=== PATIENT | male | born 1970 | race Caucasian/White ===

== ENCOUNTER 2018-09-27 14:16 | Observation (INO) ==
[2018-09-27] MEDS ORDERED: Sodium Chloride 0.9% 1,000 ML PRIMARY IV ONE (14:37)
[2018-09-27] MEDS ORDERED: ASPIRIN 81 MG (BABY) CHEWABLE TABLET PO ONE (14:37)
[2018-09-27 14:44] LABS: BASOPHILS # (AUTO) 0.04 10*3/UL; BASOPHILS % (AUTO) 0.6 % (0-1); EOSINOPHILS # (AUTO) 0.09 10*3/UL; EOSINOPHILS % (AUTO) 1.3 % (0-8); Hematocrit [HCT] 44.2 % (42.0-52.0); Hemoglobin [HGB] 15.6 g/dL (14.0-18.0); MEAN CORPUSCULAR HEMOGLOBIN 31.4 PG (27-31); MEAN CORPUSCULAR HGB CONC 35.3 g/dL (33-37); MEAN CORPUSCULAR VOLUME 88.9 FL (80-90); MEAN PLATELET VOLUME 11.3 FL (7.4-12.2); MONOCYTES % (AUTO) 8.4 % (5-15); NEUTROPHILS # (AUTO) 3.74 10*3/UL; RED BLOOD COUNT 4.97 10^6/uL (4.70-6.10)
[2018-09-27 14:45] LABS: PLATELET MORPHOLOGY COMMENT NORMAL MORPHOLOGY (NORM); RBC MORPHOLOGY COMMENT NORMAL MORPHOLOGY (NORM); WBC MORPHOLOGY COMMENT NORMAL MORPHOLOGY (NORM)
[2018-09-27 14:51] LABS: BLOOD UREA NITROGEN 11 mg/dL (7-22); BUN/CREATININE RATIO 12.22 (6-20); SERUM ALBUMIN 5.2 g/dL (3.5-4.8)
[2018-09-27 15:03] LABS: VENOUS PH 7.44 (7.32-7.42)
--- NOTE | 2018-09-27 15:10 | DI ---
AP CHEST X-RAY, 09/27/2018 2:37 PM : Clinical History: Chest pain. Previous Exam: None at this facility. Soft Tissues: No acute soft tissue abnormality. Bones: Normal. Heart: Normal heart. Lungs: No infiltrates. Effusion(s): None. Mediastinum: Normal mediastinum. Nodules: No pulmonary nodules. Reading: Normal chest x-ray.
[2018-09-27] MEDS ORDERED: NITROGLYCERIN 0.4 MG SL TAB (BOTTLE OF 3) SL ONE (15:49)
--- NOTE | 2018-09-27 15:52 | EKG ---
[address] [address] Measurements Intervals [place] Rate: 121 P: 32 CO: 100 QRS: 60 QRSD: 98 T: 26 QT: 349 QTc: 421 Interpretive Statements SINUS TACHYCARDIA WITH SHORT CO INTERVAL RIGHT VENTRICULAR CONDUCTION DELAY NONSPECIFIC ST & T-WAVE ABNORMALITY ABNORMAL RHYTHM ECG No previous ECG available for comparison Electronically Signed On 09-27-18 17:24:58 MST by Danilo Lawson [email or web address]
--- NOTE | 2018-09-27 16:02 | PDOC ---
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 Started having some weird as he states it feeling in his chest while at work started hyperventilating pain got worse and had his friends take him to the ER. He has a lot of stress and anxiety and most likely had a panic panic attack but he never experienced something like this and he said he usually can walk himself to a panic attack. He has no chest pain at this point is feeling much better Past Medical History Medical History: Hypertension Tobacco Use: Never Smoker In the Past 12 Months, Have Used or Abuse Any of the Following Substance: None Alcohol Use: Occasionally Medication / Allergies Home Medications: Home Medications Medication Instructions Recorded Confirmed Type Amlodipine Besylate 10 mg PO DAILY 09/27/18 09/27/18 History Fosinopril/Hydrochlorothiazide 10 - 12.5 mg PO DAILY 09/27/18 09/27/18 History [Fosinopril-Hctz 10-12.5 mg Tab] Allergies/Adverse Reactions: Allergies Allergy/AdvReac Type Severity Reaction Status Date / Time No Known Allergies Allergy Verified 09/27/18 14:27 Review of Systems - Review of Systems All Systems: Reviewed & No Additional Complaints Except as Stated - Respiratory Respiratory: DENIES: Negative System Review, Cough, Sputum, Dyspnea At Rest, Dyspnea with Exertion, Pleuritic Pain, Hemoptysis, Wheezing, Other, See HPI - Cardiovascular Cardiovascular: REPORTS: Chest Pain - Gastrointestinal Gastrointestinal / Abdominal: DENIES: Negative System Review, Nausea, Vomiting, Diarrhea, Constipation, Abdominal Pain, Bloody Stool, Poor Appetite, Heartburn, Regurgitation, Bloating, Lactose Intolerance, Melena, Bright Red Blood per Rectum, Other, See HPI Exam - Vitals Vital Signs: Vital Signs Temperature 97.4 F Temperature Source Temporal Artery Scan Pulse Rate [Bilateral Radial] 125 Pulse Rate 125 Respiratory Rate 24 Blood Pressure [Right Arm] 186/101 Pulse Ox 96 Oxygen Delivery Method Room Air Height 5 ft 9 in Weight 200 lb - General General Appearance: No Acute Distress, Cooperative - Head Head Exam: Normal Inspection, Normocephalic, Atraumatic - Eye Eye Exam: POSITIVE: Normal Appearance, PERRL, EOMI, No Scleral Icterus - Respiratory Respiratory Exam: POSITIVE: Clear to Auscultation - Bilaterally, Breathing Non Labored, Normal To Percussion, Normal to Percussion and Palpation - Cardiovascular Cardiovascular Exam: POSITIVE: RRR, No Murmur, No Clicks, No Gallops, No Rubs, PMI Non-Displaced - GI/Abdominal GI/Abdominal Exam: POSITIVE: Normal Bowel Sounds, Non Tender, Non Distended, Soft, No Masses, No Hepatomegaly, No Splenomegaly, No Organomegaly - Extremities Extremities Exam: POSITIVE: No Clubbing Present, No Edema Present, No Cyanosis Present - Neurological Neurological Exam: POSITIVE: Alert, Oriented x 3, No Facial Droop, Speech Intact / Clear - Psychiatric Psychiatric Exam: POSITIVE: Normal Affect, Anxious Results - Labs CBC and BMP: 09/27/18 14:37 09/27/18 14:10 Assessment and Plan - Patient Problems (1) Chest pain Current Visit: Yes Status: Acute Comment: rule out serial enzymes plus jonnie scan stess test Code(s): R07.9 - Chest pain, unspecified (2) HTN (hypertension) Current Visit: Yes Status: Acute Comment: guerline plus CCB will change to lisinopril 40 I discussed this with the patient Code(s): I10 - Essential (primary) hypertension (3) Anxiety Current Visit: Yes Status: Acute Comment: We'll give half a milligram of Ativan every 4 hours Code(s): F41.9 - Anxiety disorder, unspecified
[2018-09-27] MEDS ORDERED: NITROGLYCERIN 0.4 MG SL TAB (BOTTLE OF 3) SL PRN (16:20)
[2018-09-27] MEDS ORDERED: LISINOPRIL 10 MG TABLET PO SCH (16:20)
[2018-09-27] MEDS ORDERED: CALCIUM CARBONATE 500 MG (TUMS) CHEWABLE TABLET PO PRN (16:20)
[2018-09-27] MEDS ORDERED: LIDOCAINE W/ SODIUM BICARB 0.5 ML SYR SUBD PRN (16:20)
[2018-09-27] MEDS: LISINOPRIL 20 MG TABLET PO SCH (18:06)
[2018-09-27 18:07] LABS: AMPHETAMINE SCREEN NEGATIVE (NEG); CANNABINOID SCREEN,URINE NEGATIVE (NEG); COCAINE SCREEN NEGATIVE (NEG); METHADONE URINE SCREEN NEGATIVE (NEG); METHAMPHETAMINES SCREEN,URINE NEGATIVE (NEG); OPIATE SCREEN,URINE NEGATIVE (NEG); URINE SAMPLE TYPE CLEAN CATCH URINE; URINE SPECIFIC GRAVITY - MAN 1.004
[2018-09-27] MEDS: HEPARIN 5000 UNIT/1 ML SUBCUT SCH ×2 (18:08→23:56)
[2018-09-27] MEDS: LORazepam 2 MG/1 ML VIAL IVP PRN ×2 (20:30→22:34)
[2018-09-28] MEDS: LORazepam 2 MG/1 ML VIAL IVP PRN ×4 (00:53→21:31)
[2018-09-28 05:27] LABS: CHOL/HDL RATIO 6.05 RATIO (0-4.0)
--- NOTE | 2018-09-28 06:27 | PDOC ---
Chest Pain HPI - General Chief Complaint: Chest Pain Stated Complaint: CHEST PAIN Date Seen by Provider: 09/27/18 Time Seen by Provider: 14:25 Source: Patient Exam Limitations: POSITIVE: No limitations Treatment Prior to Arrival: REPORTS: None Nurse's Notes Reviewed & Considered: Yes - History of Present Illness Initial Comments: The patient is a 48-year-old male. Approximately 30 minutes [employer] he was eating a banana and he developed "chest pain" over the left anterior chest and a sensation of "my heart beating hard". He states he became short of breath and he did have some "tingling" to his hands. History of hypertension. 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 No similar symptoms previously. Body Location Affected: REPORTS: Chest Timing: REPORTS: Abrupt Duration: 1/2 hour Severity: Moderate Persistent/Worse since (date): 09/27/18 Persistent/Worse since (time): 13:55 Context: REPORTS: Rest Quality: REPORTS: Aching, Pressure Radiation: REPORTS: None Associated Symptoms: REPORTS: Shortness of Breath, Palpitations. DENIES: Nausea, Vomiting, Diaphoresis, Hurts to Breathe, Productive Cough (blood), Productive Cough (sputum), Weakness, Dizziness Modifying Factors: improves with: None Reported Similar Symptoms Previously: No Any Prior Injuries Related to Current Complaint?: No - Patient Home Medications Home Medications: Home Medications Amlodipine Besylate 10 mg PO DAILY 09/27/18 Fosinopril/Hydrochlorothiazide [Fosinopril-Hctz 10-12.5 mg Tab] 10 - 12.5 mg PO DAILY 09/27/18 - Patient Allergies Allergies/Adverse Reactions: Allergies Allergy/AdvReac Type Severity Reaction Status Date / Time No Known Allergies Allergy Verified 09/27/18 14:27 Past Medical History - heen HEENT History: Denies History Cardiovascular History: Hypertension Respiratory History: Denies History Gastrointestinal History: Denies History Genitourinary History: Denies History Endocrine History: Other (please comment) Additional Endocrine History: PT STATES THAT HE THINKS HE HAS PREDIABETES Musculoskeletal History: Denies History Neurological History: Denies History Blood Disorders: Denies History Psychiatric History: Denies History Male Reproductive History: Denies History Cancer History: Denies History In Past Year Been Physically Harmed or Verbally Threatened: No History of MDRO: No Tobacco Use: Never Smoker Type of alcohol normally used: Beer In the Past 12 Months, Have Used or Abuse Any Substance: None Previous Surgical History: Yes Type / Date of Surgery: APPENDECTOMY Anesthesia Reactions: No Malignant Hyperthermia: No Family History of Malignant Hyperthermia: No Significant Family History: Diabetes Additional Family History: Pt's father was a diabetic Past Medical History Reviewed: Reviewed - No Changes ROS - Limitations ROS Limitations: No Limitations Constitution: REPORTS: Denies Symptoms Cardiovascular: REPORTS: Chest Pain Respiratory: REPORTS: Shortness Of Breath, Other (Hyperventilating) Neurological: REPORTS: Denies Neuro Symptoms Gastrointestinal: REPORTS: Denies GI Symptoms Endocrine: REPORTS: Denies Symptoms Musculoskeletal: REPORTS: Denies MS Symptoms Genitourinary: REPORTS: Denies Symptoms Eyes: REPORTS: Denies Symptoms ENT: REPORTS: Denies Symptoms Skin: REPORTS: Denies Skin Symptoms Lympathic: REPORTS: Denies Lympathic Symptoms Immunologic: POSITIVE: Denies Symptoms Psychiatric: POSITIVE: Anxiety Chest Pain PE - General Appearance General Appearance: REPORTS: Alert, Cooperative, No Acute Distress, No Evidence of Trauma - HEENT HEENT: POSITIVE: Head Inspection Nml, Eyes Inspection Nml, Ears Inspection Nml, Nose Inspection Nml, Oral/Dental Inspect. Nml, Pharynx Inspect. Nml, PERRL, EOMI - Neck Neck: REPORTS: Normal Inspection, No Carotid Bruit - Respiratory Respiratory: REPORTS: No Respiratory Distress, Breath Sounds Normal, Chest Non- Tender - Cardiovascular Cardiovascular: REPORTS: Regular Rate and Rhythm, Heart Sounds Normal, Equal Pulses, Strong Pulses, No Murmur, No Gallop, No Friction Rub, No JVD Peripheral Pulses: Radial (R): 2+, Radial (L): 2+ - Abdomen Abdomen: Soft: (All Quadrants), Normal Bowel Sounds: (All Quadrants), Denies Tenderness: (All Quadrants), No Splenomegaly: (All Quadrants), No Hepatomegaly: (All Quadrants), No Guarding: (All Quadrants), No Rebound: (All Quadrants), No Palpable Pulse: (All Quadrants), No Palpabale Mass: (All Quadrants), No Distention: (All Quadrants), No Rigidity: (All Quadrants) - Skin Skin: REPORTS: Intact, Normal For Race, Warm, Dry, No Rash - Extremities Extremity: Non-Tender: (All Extremities), Normal ROM: (All Extremities), Normal Inspection: (All Extremities) - Neurological / Psychological Neurological: POSITIVE: Affect Apporpriate, Oriented X3, box cutter Normal As Tested, Motor Normal, Sensation Normal Images - Complete Complete: 1 - Area of described chest "heaviness and pressure " Chest Pain Progress - Results Reviewed by me Xrays/CTs/US Reviewed by me: Yes Discussed with Radiologist: Yes Radiology Findings: Chest x-ray normal Lab Results Reviewed by Me: Yes (all normal) CBC and BMP: 09/27/18 14:37 09/27/18 14:10 Lab Results:: Laboratory Results 09/27/18 09/27/18 09/27/18 14:10 14:10 14:10 WBC RBC Hgb Hct MCV MCH MCHC RDW Std Deviation RDW Coeff of Mary Plt Count MPV Immature Gran % (Auto) Neut % (Auto) Lymph % (Auto) Wetzel % (Auto) Eos % (Auto) Baso % (Auto) Immature Gran # (Auto) Neut # (Auto) Lymph # (Auto) Wetzel # (Auto) Eos # (Auto) Baso # (Auto) WBC Morphology Comment Plt Morphology Comment RBC Morph Comment D-Dimer 0.24 VBG pH VBG pCO2 VBG HCO3 VBG Base Excess Sodium 141 Potassium 3.7 L Chloride 102 Carbon Dioxide 23 Anion Gap 16 BUN 11 Creatinine 0.9 Estimated GFR > 60 BUN/Creatinine Ratio 12.22 Glucose 128 H Calculated Osmolality 292.0 Calcium 9.9 Total Bilirubin 0.9 AST 70 H ALT 126 H Alkaline Phosphatase 97 CK-MB (CK-2) 1.49 Troponin I < 0.012 NT-Pro-B Natriuret Pep 41.4 Total Protein 8.5 H Albumin 5.2 H Globulin 3.3 Albumin/Globulin Ratio 1.50 09/27/18 09/27/18 09/27/18 14:27 14:37 14:41 WBC 7.18 RBC 4.97 Hgb 15.6 Hct 44.2 MCV 88.9 MCH 31.4 H MCHC 35.3 RDW Std Deviation 43.0 RDW Coeff of Mary 13.5 Plt Count 230 MPV 11.3 Immature Gran % (Auto) 0.1 Neut % (Auto) 52.0 Lymph % (Auto) 37.6 Wetzel % (Auto) 8.4 Eos % (Auto) 1.3 Baso % (Auto) 0.6 Immature Gran # (Auto) 0.01 Neut # (Auto) 3.74 Lymph # (Auto) 2.70 Wetzel # (Auto) 0.60 Eos # (Auto) 0.09 Baso # (Auto) 0.04 WBC Morphology Comment Normal morphology Plt Morphology Comment Normal morphology RBC Morph Comment Normal morphology D-Dimer VBG pH 7.44 H VBG pCO2 33 L VBG HCO3 23 VBG Base Excess -2 Sodium Potassium Chloride Carbon Dioxide Anion Gap BUN Creatinine Estimated GFR BUN/Creatinine Ratio Glucose Calculated Osmolality Calcium Total Bilirubin AST ALT Alkaline Phosphatase CK-MB (CK-2) Troponin I < 0.012 NT-Pro-B Natriuret Pep Total Protein Albumin Globulin Albumin/Globulin Ratio EKG Interpreted/Reviewed By Me:: Yes (sinus tachycardia of 121; otherwise normal) EKG Interpretation:: POSITIVE: Normal Intervals, Normal [place], Normal QRS, Normal ST/T, Abnormal EKG. NEGATIVE: Normal Sinus Rhythm (Sinus tachycardia), Normal Rate (Sinus tachycardia) - Patient's Progress Pain Medication Addressed: POSITIVE: Yes (Patient given nitroglycerin, 0.4 mg sublingually was some apparent decrease in his pain.), Patient Refused Re-Examine Time: 15:00 Re-Examine Comment: Patient was hyperventilating upon presentation. With reassurance his respiratory rate came down to around 14/m and his heart rate cam e down to 109/m. Alternatives of treatment discussed. I advised the patient that I think his symptoms were likely secondary to anxiety; however, patient is quite concerned about his cardiac symptoms and after discussion of the alternatives of treatment, it was decided to admit the patient on observation status for further evaluation and treatment. Status: POSITIVE: Improved, Worsened Quality Measure Initiative: CP/AMI: POSITIVE: EKG, ASA - Consult Consult (If Yes, Name of Consulting MD & Time Called): Yes (, [email or web address], ) Consulting MD will see pt:: POSITIVE: [facility] Admit Counseled: POSITIVE: Patient, RE: Lab Results, RE: Radiology Results, RE: DX, RE: Need for F/U Patient Care Time - Estimated PCT Patient Care Time (In Minutes): 40 Vital Signs - VS Reviewed Vital Signs Reviewed: Yes Discharge Clinical Impression: Chest pain, Palpitations, Hyperventilation Discharge Disposition: Admit to Inpatient Condition: Fair Date Decision to Admit to Inpatient: 09/27/18 Time Decision to Admit to Inpatient: 15:25
--- NOTE | 2018-09-28 09:04 | STRESSTEST ---
[facility] [place] Interpretive Statements 48 Yo gentleman comes in with chest pain and neg trops .sob after test resolved with cofee. no acute changes on this part .resting in am will await final pic comparison [id number]
[2018-09-28] MEDS: HEPARIN 5000 UNIT/1 ML SUBCUT SCH ×2 (09:07→16:24)
[2018-09-28] MEDS: LISINOPRIL 20 MG TABLET PO SCH (09:07)
--- NOTE | 2018-09-28 09:12 | PDOC(PROG) ---
Interval History: We've done a stress test this morning and everything went well patient had some shortness of breath with the dye which resolved subsequently with coffee he feels much better his blood pressure controlled. No chest pain nausea vomiting Objective : Data - Labs CBC and BMP: 09/27/18 14:37 09/27/18 14:10 Objective : Exam - General General Appearance: Cooperative - Respiratory Respiratory Exam: Clear to Auscultation - Bilaterally, Breathing Non Labored, Normal To Percussion, Normal to Percussion and Palpation - Cardiovascular Cardiovascular Exam: RRR, No Murmur, No Clicks, No Gallops, No Rubs, PMI Non- Displaced - GI/Abdominal GI/Abdominal Exam: Normal Bowel Sounds, Non Tender, Non Distended, Soft, No Masses, No Hepatomegaly, No Splenomegaly, No Organomegaly - Extremities Extremities Exam: No Clubbing Present, No Edema Present Assessment and Plan - Patient Problems (1) Chest pain Current Visit: Yes Status: Acute Comment: This is resolved I believe most likely secondary to anxiety and panic attack. Patient did quite well last night with the some low doses of Ativan. Tomorrow will be the resting part of the stress test further recommendations after the test is done Code(s): R07.9 - Chest pain, unspecified (2) HTN (hypertension) Current Visit: Yes Status: Acute Comment: Now controlled with Norvasc 10 mg and lisinopril 40. I told the patient is to be his new regimen most likely and would be called at [facility] since the patient will be moving back to [place] Code(s): I10 - Essential (primary) hypertension (3) Anxiety Current Visit: Yes Status: Acute Comment: Improved with Ativan Code(s): F41.9 - Anxiety disorder, unspecified (4) Hypertriglyceridemia Current Visit: Yes Status: Acute Comment: Could be multifactorial, diet, alcohol recommended patient cut down on carbs and alcohol he said he was drinking some beers. He said as he is been doing the ability 10 diet lately recommended he check this again when he goes back to his primary care physician in [place] work to get a doctor here to follow him while he is here he said he will think about it and let us know Code(s): E78.1 - Pure hyperglyceridemia
[2018-09-29] MEDS: HEPARIN 5000 UNIT/1 ML SUBCUT SCH ×2 (00:05→09:36)
[2018-09-29] MEDS: LISINOPRIL 20 MG TABLET PO SCH (09:04)
[2018-09-29] MEDS: LORazepam 2 MG/1 ML VIAL IVP PRN (09:04)
--- NOTE | 2018-09-29 12:12 | DI ---
2 DAY LEXISCAN STRESS & REST MYOCARDIAL PERFUSION SCANS, 09/28/2018 8:00 AM : Clinical History: Chest pain Previous Exam: None at this facility. The patient was stressed by Dr. Chris Dickinson The standard Lexiscan protocol was used. Please see the Doctor's report. At the designated time, 32.1 mCi of 99Tc-sestimibi was injected IV. Stress gated tomograms were acquired within one hour of the i njection. For the resting scans, 32.2 mCi was injected IV and resting gated tomograms were acquired in similar fashion. Stress scans were performed on September 28, 2018; the resting scans were performed on September 29. Quantitative and qualitative analyses were performed. Quantitative analysis was performed with the [place] [facility] [id number] protocols. Very low dose limited CT scans of the chest are o btained through the level of the heart for attenuation correction of the gated stress and rest cardia c SPECT data. Non-attenuated and attenuated scans were processed for review, and the attenuated scans were used for final interpretation of this study. Review of the raw data images and chief vendor quality files indicate that these series of examinations ar e of excellent quality. There are no rejected beats. There was some chest wall attenuation. There is no gap crosstalk on stress or rest. Stress and rest left ventricular chamber sizes are normal. Stress and rest LVEF are 73 % and 75 %, r espectively. There is a small mild intensity defect within the anterior septal wall which is fixed on stress and rest. There is no evidence of ischemia. There is normal wall motion. Transient ischemic dilatation ratio is 1.08, with a normal range up to 1.22 for patients stressed wi th the Jeovany protocol and up to 1.33 for patients stressed with the Lexiscan protocol. The very low dose CT scans through the level of the heart show no coronary artery calcifications. The re is no adenopathy or evidence of lung nodules. Reading: Small fixed defect within the anterior septal wall without evidence of reversibility. There is normal wall motion and normal ejection fraction.
[2018-09-29 13:13] VITALS: BP 138/81; RESP 20; TEMP 98.3; O2SAT 94
--- NOTE | 2018-09-29 15:21 | DCSUMMARY ---
Hospitalization Summary Admit Date: 09/27/2018 Discharge Date: 09/29/18 Primary Diagnosis:: chest pain with prior myocardial infarction Hospital Course: Very pleasant 48-year-old male who presented with chest pain and was admitted for rule out myocardial infarction. He did rule out. He had high triglycerides. His blood pressure medication was changed and we got better blood pressure control. He had an Lexiscan stress test performed, and it was positive for a fixed defect but was negative for any reversible defects. His chest pain has resolved now. Given the fixed defect, I felt it was important to work on secondary coronary artery disease, so continuing his anti hypertensive agents, and adding lopid for hypertrigliceridemia. We also discussed dietary changes for the high triglycerides and cholesterol. We were able to get the patient arranged with a mold unloader for follow up and further discussion regarding stress test findings. today, no chest pain, no shortness of breath, and no nausea or vomiting. Assessment and Plan: 1. As per discharge assessments noted 2. Disposition: patient is discharged home. 3. Condition on discharge, stable and improved. 4. Diet: regular diet 5. Activities: resume normal activities 6. Follow-Up: 1. Cardiology in the next couple weeks. 7. Medications at the Time of Discharge: Home Medications Medication Instructions Recorded Confirmed Type Amlodipine Besylate 10 mg PO DAILY 09/27/18 09/27/18 History Aspirin EC 81 mg PO DAILY #90 tablet. 09/29/18 Rx Gemfibrozil [Lopid] 600 mg PO BID #60 tab 09/29/18 Rx Lisinopril [Prinivil Tab] 20 mg PO DAILY #90 tab 09/29/18 Rx Lorazepam [Ativan] 0.5 mg PO BID PRN #10 tab 09/29/18 Rx 8. Time, care, counseling and coordination of care for this discharge is greater than 30 minutes. Exam - Vitals Vital Signs: Vital Signs Temperature 98.3 F Temperature Source Temporal Artery Scan Pulse Rate [Pulse Oximeter] 87 Pulse Rate [Bilateral Radial] 90 Pulse Rate 68 Respiratory Rate 20 Blood Pressure [Right Arm] 138/81 Pulse Ox 94 Oxygen Flow Rate 1 Oxygen Delivery Method Room Air Height 5 ft 9 in Weight 205 lb 12.8 oz - General General Appearance: No Acute Distress, Cooperative - Head Head Exam: Normal Inspection, Normocephalic, Atraumatic - Eye Eye Exam: POSITIVE: No Scleral Icterus - ENT ENT Exam: POSITIVE: Mucous Membranes Moist - Respiratory Respiratory Exam: POSITIVE: Clear to Auscultation - Bilaterally, Breathing Non Labored - Cardiovascular Cardiovascular Exam: POSITIVE: RRR, No Murmur, No Clicks, No Gallops, No Rubs, No JVD - GI/Abdominal GI/Abdominal Exam: POSITIVE: Normal Bowel Sounds, Non Tender, Non Distended, Soft - Extremities Extremities Exam: POSITIVE: No Clubbing Present, No Edema Present, No Cyanosis Present - Neurological Neurological Exam: POSITIVE: Alert, Oriented x 3, No Facial Droop, Speech Intact / Clear, Moves All Extremities Equally Data Peritnent Studies: 09/27/18 09/27/18 09/27/18 14:10 14:10 14:37 WBC 7.18 Hgb 15.6 Hct 44.2 Plt Count 230 D-Dimer Sodium 141 Potassium 3.7 L Chloride 102 Carbon Dioxide 23 Anion Gap 16 BUN 11 Creatinine 0.9 Estimated GFR > 60 BUN/Creatinine Ratio 12.22 Glucose 128 H Calculated Osmolality 292.0 Calcium 9.9 Total Bilirubin 0.9 AST 70 H ALT 126 H Alkaline Phosphatase 97 CK-MB (CK-2) 1.49 Troponin I < 0.012 NT-Pro-B Natriuret Pep 41.4 Total Protein 8.5 H Albumin 5.2 H Globulin 3.3 Albumin/Globulin Ratio 1.50 Triglycerides Cholesterol LDL Cholesterol, Calc VLDL Cholesterol HDL Cholesterol Cholesterol/HDL Ratio TSH 09/28/18 09/28/18 09/28/18 04:02 04:02 04:02 WBC Hgb Hct Plt Count D-Dimer 0.22 Sodium Potassium Chloride Carbon Dioxide Anion Gap BUN Creatinine Estimated GFR BUN/Creatinine Ratio Glucose Calculated Osmolality Calcium Total Bilirubin AST ALT Alkaline Phosphatase CK-MB (CK-2) Troponin I NT-Pro-B Natriuret Pep Total Protein Albumin Globulin Albumin/Globulin Ratio Triglycerides 504 H Cholesterol 206 H LDL Cholesterol, Calc 71.200 VLDL Cholesterol 100 H HDL Cholesterol 34 L Cholesterol/HDL Ratio 6.05 H TSH 4.37 H Procedures: [address] [facility] [place] [address] PH: DD: [phone] FAX: [phone] ~DIAGNOSTIC IMAGING REPORT~ Patient: JEOVANY MAS : 1970 Sex: M Age: 48 Exam Name: RI Myocardial Multi-Spect Exam Date: 09/28/18 Report # : [id number] CPT Code: 75935 EMR/MR #: [id number] Ordering: SANTANA DICKINSON Admiting: SANTANA DICKINSON MD. Primary: NONE,NONE Attending: SANTANA DICKINSON MD. Signed 2 DAY LEXISCAN STRESS & REST MYOCARDIAL PERFUSION SCANS, 09/28/2018 8:00 AM : Clinical History: Chest pain Previous Exam: None at this facility. The patient was stressed by Dr. Santana Dickinson The standard Lexiscan protocol was used. Please see the Doctor's report. At the designated time, 32.1 mCi of 99Tc-sestimibi was injected IV. Stress gated tomograms were acquired within one hour of the injection. For the resting scans, 32.2 mCi was injected IV and resting gated tomograms were acquired in similar fashion. Stress scans were performed on September 28, 2018; the resting scans were performed on September 29, 2018. Quantitative and qualitative analyses were performed. Quantitative analysis was performed with the [facility] [id number] protocols. Very low dose limited CT scans of the chest are obtained through the level of the heart for attenuation correction of the gated stress and rest cardiac SPECT data. Non-attenuated and attenuated scans were processed for review, and the attenuated scans were used for final interpretation of this study. Review of the raw data images and senior manager quality assurance files indicate that these series of examinations are of excellent quality. There are no rejected beats. There was some chest wall attenuation. There is no gap crosstalk on stress or rest. Stress and rest left ventricular chamber sizes are normal. Stress and rest LVEF are 73 % and 75 %, respectively. There is a small mild intensity defect within the anterior septal wall which is fixed on stress and rest. There is no evidence of ischemia. There is normal wall motion. Transient ischemic dilatation ratio is 1.08, with a normal range up to 1.22 for patients stressed with the Jeovany protocol and up to 1.33 for patients stressed with the Lexiscan protocol. The very low dose CT scans through the level of the heart show no coronary arter y calcifications. There is no adenopathy or evidence of lung nodules. Reading: Small fixed defect within the anterior septal wall without evidence of reversibility. There is normal wall motion and normal ejection fraction. Dictated By: 09/29/18 1203 CATHERINE TOMAS MD. Signed By: 09/29/18 1212 CATHERINE TOMAS MD. Patient Problems - Patient Problem List (1) Chest pain Current Visit: Yes Status: Resolved Code(s): R07.9 - Chest pain, unspecified Category: Medical (2) Hx of myocardial infarction Current Visit: Yes Status: Acute Code(s): I25.2 - Old myocardial infarction Category: Medical (3) HTN (hypertension) Current Visit: Yes Status: Acute Code(s): I10 - Essential (primary) hypertension Qualifiers: Hypertension type: essential hypertension Qualified Code(s): I10 - Essential (primary) hypertension Category: Medical (4) Anxiety Current Visit: Yes Status: Acute Code(s): F41.9 - Anxiety disorder, unspecified Category: Medical (5) Hypertriglyceridemia Current Visit: Yes Status: Acute Code(s): E78.1 - Pure hyperglyceridemia Category: Medical
== END 2018-09-29 15:55 | disposition home or self-care (01) ==
LOC: ER 14:16 → MED/SURG 14:16
PROVIDERS: ADMIT Internal Medicine; ATTEND Internal Medicine